=== PATIENT | female | born 1995 | race Caucasian/White ===

== ENCOUNTER 2021-05-24 23:21 | Emergency (ER) | payer OTHER ==
[~2021-05-24] VITALS: Ht 162.6 cm; Wt 115.7 kg
[2021-05-24 23:45] VITALS: BP_SYST 127
--- NOTE | 2021-05-25 | NUR ---
Patient to ER bed 7 to gown for evaluation. Side rails up.
--- NOTE | 2021-05-25 00:08 | NUR ---
Pt awake a/o x4. speech clear and coherent. pt c/o abd pain each time she has the urge to vomit, this staeted at 11am 05/24/21, states she has had over 10 episodes of vomiting and over10 episodes of watery diarrhea since 11am 05/24/21. Pt also c/o pain to lower back / flank.Mother at bedside. Placed on cardiac monitoring, pt tahycardic in the 130's. IV access established #20g to LAC, blood drawn and sent to lab. Pt also provided urine sample, sent over to lab. Awaiting for MD vela. will continue to monitor.
[2021-05-25] MEDS ORDERED: NACL 0.9% 1,000 ML IV ONE (00:30)
[2021-05-25] MEDS ORDERED: KETOROLAC TROMETHAMINE 30 MG VIAL IVP ONE (00:30)
[2021-05-25] MEDS ORDERED: ONDANSETRON HCL 4 MG/2 ML VIAL IVP ONE ×2 (00:45→02:15)
[2021-05-25 00:53] LABS: EOSINOPHILS % (AUTO) 0.1 % (0.0-4.0); LYMPHOCYTES # (AUTO) 0.3 K/uL (1.0-5.5)
[2021-05-25 00:54] LABS: CREATININE 1.04 mg/dL (0.55-1.30); POTASSIUM 3.9 mmol/L (3.5-5.1)
[2021-05-25 01:00] LABS: ALBUMIN 3.9 g/dL (3.4-4.8); TOTAL BILIRUBIN 0.4 mg/dL (0.0-1.0)
[2021-05-25 01:06] LABS: MEAN CORPUSCULAR HEMOGLOBIN 28 pg (27-31); MEAN CORPUSCULAR HGB CONC 34 % (32-36); MEAN CORPUSCULAR VOLUME 84 fL (79.0-98.0)
[2021-05-25 01:14] LABS: HEMATOCRIT 42.3 % (36-48); HEMOGLOBIN 14.3 g/dL (12.0-16.0); PLATELET COUNT (AUTO) 293 K/uL (130-430); RED BLOOD CELL COUNT(AUTO) 5.06 MIL/uL (4.2-6.2); RED CELL DISTRIBUTION WIDTH 14.5 % (9.0-15.0); WHITE BLOOD COUNT (AUTO) 11.9 K/uL (4.8-10.8)
[2021-05-25 01:15] LABS: BASOPHILS # (AUTO) 0.1 K/uL (0.0-0.2); BASOPHILS % (AUTO) 0.8 % (0.0-2.0); LYMPHOCYTES % (AUTO) 2.4 % (20.5-51.5); MONOCYTES # (AUTO) 0.3 K/uL (0.0-1.0); MONOCYTES % (AUTO) 2.1 % (1.7-9.3); NEUTROPHILS # (AUTO) 11.2 K/uL (1.8-7.7); NEUTROPHILS % (AUTO) 94.6 % (40.0-70.0)
[2021-05-25] MEDS ORDERED: ONDA-8 TL (01:49)
--- NOTE | 2021-05-25 01:53 | NUR ---
Dr Steiner at bedside speaking with pt and pts mother
--- NOTE | 2021-05-25 02:04 | NUR ---
Pt c/o nausea,Dr Steiner made aware
--- NOTE | 2021-05-25 02:30 | NUR ---
Pt awake a/o x4. ACI reviewed with pt and pts mother, verbalized understanding. DC by Dr Steiner. tavo.
[2021-05-25 02:31] VITALS: BP_SYST 110
== END 2021-05-25 02:31 | disposition home or self-care (01) ==
LOC: SED 23:21
DX: A08.4 Viral intestinal infection, unspecified (principal); Z79.899 Other long term (current) drug therapy; Z20.822 Contact with and (suspected) exposure to COVID-19
CPT/HCPCS: 36415; 80053; 85025; 87426; 96361; 96374; 96375; 96376; 99284; J1885; J2405; J7030